=== PATIENT | male | born 1970 | race Caucasian/White ===

== ENCOUNTER 2017-01-13 20:32 | Emergency (ER) | payer OTHER ==
[~2017-01-13] VITALS: Ht 175.3 cm; Wt 95.0 kg
[2017-01-13 20:36] VITALS: BP 131/74; PULSE 137; RESP 18; TEMP 98.4; O2SAT 97
[2017-01-13] MEDS ORDERED: SODIUM CHLOR 0.9% 1000 ML INJ 1,000 ML IV SCH (20:49)
[2017-01-13] MEDS ORDERED: SODIUM CHLORIDE 0.9% FLUSH 5 ML FLUSH IVF PRN (21:00)
--- NOTE | 2017-01-13 21:28 | RADRPT ---
EXAM DATE/TIME: 01/13/2017 20:59 [facility] COMPARISON: No previous studies available for comparison. INDICATIONS : Syncopal episode today. MEDICAL HISTORY : None. SURGICAL HISTORY : None. ENCOUNTER: Initial ACUITY: 1 day PAIN SCORE: Non-responsive. LOCATION: Bilateral chest FINDINGS: A single view of the chest demonstrates the lungs to be symmetrically aerated without evidence of mas s, infiltrate or effusion. The cardiomediastinal contours are unremarkable. Osseous structures are intact. CONCLUSION: No acute disease. Kin Lea MD on January 13, 2017 at 21:26 Board Certified Radiologist. This report was verified electronically.
--- NOTE | 2017-01-13 21:59 | RADRPT ---
EXAM DATE/TIME: 01/13/2017 21:42 [facility] COMPARISON: No previous studies available for comparison. INDICATIONS : Trauma; altered mental status / scalp laceration. RADIATION DOSE: 43.66 CTDIvol (mGy) MEDICAL HISTORY : None SURGICAL HISTORY : None. ENCOUNTER: Initial ACUITY: 1 day PAIN SCALE: 5/10 LOCATION: cranial TECHNIQUE: Multiple contiguous axial images were obtained of the head. Using automated exposure control and adj ustment of the mA and/or kV according to patient size, radiation dose was kept as low as reasonably a chievable to obtain optimal diagnostic quality images. FINDINGS: CEREBRUM: The ventricles are normal for age. No evidence of midline shift, mass lesion, hemorrhage or acute in farction. No extra-axial fluid collections are seen. POSTERIOR FOSSA: The cerebellum and brainstem are intact. The 4th ventricle is midline. The cerebellopontine angle i s unremarkable. EXTRACRANIAL: Small right parietal scalp contusion. SKULL: The calvaria is intact. No evidence of skull fracture. CONCLUSION: Negative noncontrast head CT. Niko Alvarez MD on January 13, 2017 at 21:56 Board Certified Radiologist. This report was verified electronically.
[2017-01-13 22:00] VITALS: BP 130/82; PULSE 111; RESP 18; O2SAT 95
[2017-01-13 22:04] LABS: AUTOMATED NEUTROPHIL # 4.7 TH/MM3 (1.8-7.7); BASOPHIL % 0.3 % (0.0-2.0); EOSINOPHIL % 0.3 % (0.0-4.0); HEMO FLAGS DIFF FINAL; LYMPH % 34.6 % (9.0-44.0); LYMPHOCYTE # 2.8 TH/MM3 (1.0-4.8); MEAN CELL VOLUME 84.9 FL (80.0-100.0); MEAN CORPUSCULAR HEMOGLOBIN 29.6 PG (27.0-34.0); MEAN CORPUSCULAR HGB CONC 34.8 % (32.0-36.0); MONO % 6.2 % (0.0-8.0); NEUT % 58.6 % (16.0-70.0); PLATELET COUNT 225 TH/MM3 (150-450); RED BLOOD COUNT 5.42 MIL/MM3 (4.50-5.90); RED CELL DISTRIBUTION WIDTH 13.4 % (11.6-17.2)
[2017-01-13 22:19] LABS: ANION GAP 14 MEQ/L (5-15)
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
[2017-01-13 22:29] LABS: ALKALINE PHOSPHATASE 80 U/L (45-117); ALT (GPT) 45 U/L (12-78); AST (GOT) 29 U/L (15-37); BICARBONATE 24.8 MEQ/L (21.0-32.0); BLOOD UREA NITROGEN 12 MG/DL (7-18); CHLORIDE 108 MEQ/L (98-107); CREATINE KINASE 285 U/L (39-308); GLOMERULAR FILTRATION RATE 55 ML/MIN (>89); POTASSIUM 3.4 MEQ/L (3.5-5.1); SODIUM (NA) 147 MEQ/L (136-145); TOTAL BILIRUBIN ADULT 0.3 MG/DL (0.2-1.0)
[2017-01-13] MEDS ORDERED: LIDOCAINE 1%/EPINEPHrine 1:100,000 SOLN 20 ML VIAL ONE (22:37)
[2017-01-13] MEDS ORDERED: LIDOCAINE 1%/EPINEPHrine 1:100,000 SOLN 20 ML VIAL INFIL ONE (22:45)
--- NOTE | 2017-01-13 23:13 | PD ---
Physical Exam Time Seen by Provider: 22:30 Data Data Last Documented VS Vital Signs Date Time Temp Pulse Resp B/P Pulse Ox O2 Delivery O2 Flow Rate FiO2 01/13/17 22:00 111 18 130/82 95 Room Air 01/13/17 20:36 98.4 Orders Electrocardiogram (01/13/17 20:49) Complete Blood Count With Diff (01/13/17 20:49) Comprehensive Metabolic Panel (01/13/17 20:49) Creatine Kinase (Cpk) (01/13/17 20:49) Troponin I (01/13/17 20:49) Thyroid Stimulating Hormone (01/13/17 20:49) Lactic Acid Sepsis Protocol (01/13/17 20:49) Chest, Single Ap (01/13/17 20:49) Ct Brain W/O Iv Contrast(Rout) (01/13/17 20:49) Blood Glucose (01/13/17 20:49) Ecg Monitoring (01/13/17 20:49) Iv Access Insert/Monitor (01/13/17 20:49) Oximetry (01/13/17 20:49) Sodium Chloride 0.9% Flush (Ns Flush) (01/13/17 21:00) Sodium Chlor 0.9% 1000 Ml Inj (Ns 1000 M (01/13/17 20:49) Drug Screen, Random Urine (01/13/17 20:49) Alcohol (Ethanol) (01/13/17 20:49) Lidocai-Epi 1%-1:100,000 Inj (Xylocaine- (01/13/17 22:45) Lidocai-Epi 1%-1:100,000 Inj (Xylocaine- (01/13/17 22:37) Labs Laboratory Tests Test 01/13/17 01/13/17 21:10 21:18 White Blood Count 8.0 TH/MM3 Red Blood Count 5.42 MIL/MM3 Hemoglobin 16.0 GM/DL Hematocrit 46.0 % Mean Corpuscular Volume 84.9 FL Mean Corpuscular Hemoglobin 29.6 PG Mean Corpuscular Hemoglobin 34.8 % Concent Red Cell Distribution Width 13.4 % Platelet Count 225 TH/MM3 Mean Platelet Volume 10.7 FL Neutrophils (%) (Auto) 58.6 % Lymphocytes (%) (Auto) 34.6 % Monocytes (%) (Auto) 6.2 % Eosinophils (%) (Auto) 0.3 % Basophils (%) (Auto) 0.3 % Neutrophils # (Auto) 4.7 TH/MM3 Lymphocytes # (Auto) 2.8 TH/MM3 Monocytes # (Auto) 0.5 TH/MM3 Eosinophils # (Auto) 0.0 TH/MM3 Basophils # (Auto) 0.0 TH/MM3 CBC Comment DIFF FINAL Differential Comment Sodium Level 147 MEQ/L Potassium Level 3.4 MEQ/L Chloride Level 108 MEQ/L Carbon Dioxide Level 24.8 MEQ/L Anion Gap 14 MEQ/L Blood Urea Nitrogen 12 MG/DL Creatinine 1.40 MG/DL Estimat Glomerular Filtration 55 ML/MIN Rate Random Glucose 115 MG/DL Calcium Level 8.0 MG/DL Total Bilirubin 0.3 MG/DL Aspartate Amino Transf 29 U/L (AST/SGOT) Alanine Aminotransferase 45 U/L (ALT/SGPT) Alkaline Phosphatase 80 U/L Total Creatine Kinase 285 U/L Troponin I LESS THAN 0.02 NG/ML Total Protein 7.8 GM/DL Albumin 4.2 GM/DL Thyroid Stimulating Hormone 0.454 uIU/ML 3rd Gen Ethyl Alcohol Level 316 MG/DL Lactic Acid Level 2.6 mmol/L [facility] Medical Record Reviewed: Yes Supervised Visit with ALYSSA: No Narrative Course Verbally consents laceration repair. Procedures Procedure Narrative Location: Scalp Length: 3 cm Number of tim/sutures: [place] The area was prepped with Betadine. The area was anesthetized locally with 1% lidocaine with epinephrine The area was thoroughly irrigated and explored with no signs of tendon, vascular injury or foreign body. The wound was closed using tim. This was a single layer repair. Patient tolerated procedure well Scripts No Active Prescriptions or Reported Meds Carlos Hernandez Jan 13, 2017 23:13
[2017-01-13 23:51] LABS: LACTIC ACID GHOST NOT REPORTABLE
== END 2017-01-14 00:07 | disposition home or self-care (01) ==
LOC: NEPC 20:32
DX: S01.01XA Laceration without foreign body of scalp, initial encounter (principal); F10.10 Alcohol abuse, uncomplicated; R41.3 Other amnesia; X58.XXXA Exposure to other specified factors, initial encounter; Y99.8 Other external cause status
CPT/HCPCS: 12002; 70450; 71010; 80053; 80307; 82550; 83605; 84443; 84484; 85025; 96360; 99285; J7030